=== PATIENT | male | born 1955 | race Asian ===

== ENCOUNTER 2024-11-20 10:27 | Emergency (ER) | payer MEDICARE ==
[~2024-11-20] VITALS: Ht 165.1 cm; Wt 63.6 kg
[2024-11-20] MEDS ORDERED: METF-1211 PO (10:42)
[2024-11-20] MEDS ORDERED: SEMA0.258 SQ (10:42)
[2024-11-20] MEDS ORDERED: EMPA25TA3 PO (10:42)
[2024-11-20] MEDS ORDERED: ASPI81TA87 PO (10:42)
[2024-11-20] MEDS ORDERED: INSLAN SQ (10:42)
[2024-11-20 10:43] VITALS: TEMP 98.4
[2024-11-20] MEDS ORDERED: IRBE150T34 PO (10:43)
[2024-11-20] MEDS ORDERED: ROSU20TA98 PO (10:43)
[2024-11-20] MEDS ORDERED: CARV12 PO (10:43)
[2024-11-20 14:47] VITALS: BP 115/75; PULSE 69; RESP 17; O2SAT 97
== END 2024-11-20 14:48 | disposition home or self-care (01) ==
LOC: EMS 10:35
DX: S09.90XA Unspecified injury of head, initial encounter (principal); E11.9 Type 2 diabetes mellitus without complications; I10 Essential (primary) hypertension; E78.00 Pure hypercholesterolemia, unspecified; Z79.4 Long term (current) use of insulin; Z79.82 Long term (current) use of aspirin; Z79.84 Long term (current) use of oral hypoglycemic drugs; Z79.899 Other long term (current) drug therapy; W01.198A Fall on same level from slipping, tripping and stumbling with subsequent striking against other object, initial encounter; Y93.89 Activity, other specified; Y92.89 Other specified places as the place of occurrence of the external cause; Y99.8 Other external cause status
CPT/HCPCS: 70450; 82962; 99284